=== PATIENT | female | born 1945 | race Caucasian/White ===

== ENCOUNTER 2023-04-07 10:31 | Emergency (ER) | payer MEDICARE, OTHER, SELFPAY ==
[2023-04-07 10:40] VITALS: BP 118/82; PULSE 87; RESP 16; TEMP 36.6; O2SAT 96; BMI 23.1
--- NOTE | 2023-04-07 11:46 | ED_ITS ---
HPI - Nausea/Vomiting/Diarrhea General: Chief complaint: Nausea/Vomiting/Diarrhea Stated complaint: NVD Time Seen by Provider: 04/07/23 11:46 History of Present Illness: Patient presents to the ER with complaints of nausea and vomiting. Patient ate out on and has had nausea vomiting ever since all except 1 day. Patient says she is not able to keep anything down and is soon as she puts it down comes right back up. Patient denies any abdominal pain and or diarrhea at this moment. There are no sick contacts in the house. who ate out on ate a different meal and does not have the nausea vomiting. Onset (ago): day(s) (4 days ago) Description of vomiting: watery and bilious Associated nausea: Yes Associated abdominal pain: No Exacerbating factors: eating Relieving factors: none Context: possible food poisoning Associated symtoms: Reports nausea Treatment prior to arrival: none Review of Systems General: Reports: 10 or more systems reviewed and unremarkable except in HPI and below GI: Reports: nausea Physical Exam Const: COMMON NORMALS: no acute distress, average body habitus, patient anitra ented x3, no limitations, healthy appearing, alert and well nourished HENMT: COMMON NORMALS: normocephalic, atraumatic, hearing grossly normal hang aterally, external ears normal, Normal external nose present and moist oral mucous membranes HEAD & SCALP: normocephalic and atraumatic NOSE: Normal external nose present EXTERNAL EAR: Yes external ears normal Neck/C-Spine: COMMON NORMALS: no JVD Chest: COMMONS NORMALS: normal inspection of the chest and normal palpation of entire chest wall Resp: COMMON NORMALS: normal respiratory effort, No retractions, No use of accessory muscles and clear to auscultation bilaterally AUSCULTATION: clear to auscultation bilaterally Cardio: COMMON NORMALS: no JVD, regular rate, regular rhythm, S1 normal heart sound present, S2 normal heart sound present, No gallops present (Cardio), No clicks present (Cardio), No murmurs present (Cardio) and No rub (Cardio) RATE: regular rate RHYTHM: regular rhythm HEART SOUNDS: S1 normal heart sound present and S2 normal heart sound present GI: COMMON NORMALS: Normal to inspection, nondistended, normoactive bowel sounds present, Soft to palpation, non-tender, No hepatosplenomegaly present and no masses PALPATION: Yes Soft to palpation and Yes No hepatosplenomegaly present : COMMON NORMALS: Yes no CVA tenderness BLADDER/KIDNEY EXAM: Yes no CVA tenderness Back/Pelvis: COMMON NORMALS: no CVA tenderness Neuro: COMMON NORMALS: patient oriented x3 SENSORIUM/ORIENTATION: Yes alert Course Vital Signs: Vital signs: Vital Signs Temperature 97.8 F 04/07/23 10:40 Pulse Rate 87 04/07/23 10:40 Respiratory Rate 16 04/07/23 10:40 Blood Pressure 118/82 04/07/23 10:40 Pulse Oximetry 96 04/07/23 10:40 Oxygen Delivery Me thod Room Air 04/07/23 10:40 MDM - Nausea/Vomiting/Diarrhea Medical Decision Making Patient presents to the ER with complaints of nausea vomiting for the last 4 days since eating out. Patient is not able to keep anything down. Patient has a benign physical exam. Lab work showed patient was hemoconcentrated and dehydrated. Patient's BUN/creatinine was elevated at 53 and 2.9. Patient stated she just had lab work done by her PCP in the last couple weeks and he did not see anything about renal insufficiency. Patient was given 2 L normal saline and 4 mg of Zofran in ER with improvement of patient's symptoms. Patient be discharged home on Zofran and told to push liquids. Patient should follow-up with PCP in 1 week to have labs rechecked. Differential Diagnosis Likely food poisoning and gastroenteritis; Unlikely traveler's diarrhea, clostridium difficile infection, drug-induced nausea and vomiting or dehydration Medical Records I reviewed the patient's medical records. Lab Data I reviewed the patient's lab results. 04/07/23 12:08 04/07/23 12:08 Laboratory Results WBC 11.5 10^3/uL (4.0-10.0) H 04/07/23 12:08 RBC 5.42 10^6/uL (4.1-5.3) H 04/07/23 12:08 Hgb 16.0 g/dL (11.5-15.3) H 04/07/23 12:08 Hct 47.3 % (37.0-47.0) H 04/07/23 12:08 MCV 87.3 fl (81-99) 04/07/23 12:08 MCH 29.5 pg (28.0-34.0) 04/07/23 12:08 MCHC 33.8 g/dL (30.0-36.0) 04/07/23 12:08 RDW 13.0 % (12.1-15.1) 04/07/23 12:08 Plt Count 259 10^3/cmm (130-400) 04/07/23 12:08 MPV 11.3 fL (7.4-10.4) H 04/07/23 12:08 Neut % (Auto) 74.5 % 04/07/23 12:08 Lymph % (Auto) 14.3 % 04/07/23 12:08 [place] % (Auto) 10.6 % 04/07/23 12:08 Eos % (Auto) 0.1 % 04/07/23 12:08 Baso % (Auto) 0.2 % 04/07/23 12:08 Neut # (Auto) 8.57 10^3/uL (1.8-7.7) H 04/07/23 12:08 Lymph # (Auto) 1.7 10^3/uL (0.8-4.8) 04/07/23 12:08 [place] # (Auto) 1.2 10^3/uL (0.2-0.9) H 04/07/23 12:08 Eos # (Auto) 0.0 10^3/uL (0.0-0.8) 04/07/23 12:08 Baso # (Auto) 0.0 10^3/uL (0.0-0.1) 04/07/23 12:08 Nucleated RBC % (auto) 0 % 04/07/23 12:08 Nucleated RBCs # 0.0 /100WBC 04/07/23 12:08 Sodium 136 mmol/L (136-145) 04/07/23 12:08 Potassium 3.5 mmol/L (3.5-5.1) 04/07/23 12:08 Chloride 90 mmol/L (98-107) L 04/07/23 12:08 Carbon Dioxide 25 mmol/L (22-29) 04/07/23 12:08 Anion Gap 24.5 (5-19) H 04/07/23 12:08 BUN 53 mg/dL (8-23) H 04/07/23 12:08 Creatinine 2.9 mg/dL (0.5-0.9) H 04/07/23 12:08 GFR Calculation Not Reportable 04/07/23 12:08 Glucose 110 mg/dL (65-115) 04/07/23 12:08 Calculated Osmolality 297 mOsm/kg (285-295) H 04/07/23 12:08 Calcium 10.5 mg/dL (8.5-10.5) 04/07/23 12:08 Magnesium 2.6 mg/dL (1.7-2.3) H 04/07/23 12:08 Total Bilirubin 0.7 mg/dL (0.15-1.2) 04/07/23 12:08 AST 19 U/L (0-32) 04/07/23 12:08 ALT 13 U/L (0-33) 04/07/23 12:08 Alkaline Phosphatase 100 U/L (35-105) 04/07/23 12:08 Total Protein 8.0 g/dL (6.6-8.7) 04/07/23 12:08 Albumin 4.7 g/dL (3.5-5.2) 04/07/23 12:08 Globulin 3.3 g/dL (1.3-4.6) 04/07/23 12:08 Lipase 54 U/L (13-60) 04/07/23 12:08 Urine Color Dark yellow (Yellow) 04/07/23 12:02 Urine Appearance Cloudy (CLEAR) A 04/07/23 12:02 Urine pH 5 (5-7) 04/07/23 12:02 Ur Specific Avis 1.025 (1.005-1.030) 04/07/23 12:02 Urine Protein 2+ (Negative) H 04/07/23 12:02 Urine Glucose (UA) 1+ (Normal) H 04/07/23 12:02 Urine Ketones Negative (Negative) 04/07/23 12: Urine Blood 3+ (Negative) H 04/07/23 12:02 Urine Nitrate Positive (Negative) H 04/07/23 12:02 Urine Bilirubin 1+ (Negative) H 04/07/23 12:02 Urine Urobilinogen 1 mg/dL (Negative) H 04/07/23 12:02 Ur Leukocyte Esterase 2+ (Negative) H 04/07/23 12:02 Urine RBC 5-10 /hpf (0-2) H 04/07/23 12:02 Urine WBC 80-100 /hpf (0-5) H 04/07/23 12:02 Ur Squamous Epith Cells 5-10 /hpf (0-5) H 04/07/23 12:02 Amorphous Sediment Not Reportable 04/07/23 12:02 Urine Bacteria 2+ /hpf (NONE) H 04/07/23 12:02 Discharge Plan Discharge Patient Disposition: Home Clinical Impression: Food poisoning, Gastroenteritis, Acute renal insufficiency Condition: Stable Prescriptions: New ondansetron HCl 4 mg tablet 4 mg PO Q6H PRN (Reason: nausea and vomiting) Qty: 30 0RF No Action amlodipine 5 mg tablet 5 mg PO QAM ibuprofen 200 mg Tablet 400 mg PO Q6H PRN (Reason: Pain) Discharge Orders: Discharge ED (Routine); Ordered 04/07/23 Ordered By: Leo Schuster Referrals: Case Lombardi DO [Primary Care Provider] - 1 week Discharge Diet: Advance as tolerated and Full LIquid Patient Instructions: Acute Kidney Injury (DC), Acute Nausea and Vomiting (DC) Activity Restrictions/Additional Instructions: Your lab work in the ER showed you are dehydrated and your kidneys are having to work harder than normal. Please limit all uses of anti-inflammatory medicines such as the ibuprofen. Please push clear liquids and advance her diet as tolerated. Please take the Zofran as needed for nausea and vomiting. Please follow-up with your family practice doctor within the next 7 to 10 days for evaluation and recheck of your kidneys. Coding Level of Care Code ED Membership Sales Manager for Iggy Holbrook
[2023-04-07 12:15] LABS: Basophils % 0.2 %; Eosinophils % 0.1 %; Hematocrit 47.3 % (37.0-47.0); Lymphocytes # 1.7 10^3/uL (0.8-4.8); Lymphocytes % 14.3 %; Mean Corpuscular HGB Conc 33.8 g/dL (30.0-36.0); Mean Corpuscular Hemoglobin 29.5 pg (28.0-34.0); Mean Corpuscular Volume 87.3 fl (81-99); Mean Platelet Volume 11.3 fL (7.4-10.4); Monocytes # 1.2 10^3/uL (0.2-0.9); Monocytes % 10.6 %; Neutrophils # 8.57 10^3/uL (1.8-7.7); Neutrophils % 74.5 %; Nucleated Red Blood Cells % 0 %; Platelet Count 259 10^3/cmm (130-400); Red Blood Count 5.42 10^6/uL (4.1-5.3); White Blood Count 11.5 10^3/uL (4.0-10.0)
[2023-04-07 12:24] LABS: Urine Appearance Cloudy (CLEAR); Urine Color Dark Yellow (Yellow)
[2023-04-07 12:26] LABS: Add Urine Microscopic? YES; Bilirubin Urine 1+ (Negative); Blood Urine 3+ (Negative); Glucose Urine UA 1+ (Normal); Ketones Urine Negative (Negative); Leukocyte Esterase Urine 2+ (Negative); Nitrate Urine Positive (Negative); Protein Urine 2+ (Negative); Specific Gravity, Urine 1.025 (1.005-1.030); Urobilinogen Urine 1 mg/dL (Negative); pH Urine 5 (5-7)
[2023-04-07 12:27] LABS: Add Urine Culture? Yes; Bacteria Urine 2+ /hpf; WBC Urine 80-100 /hpf (0-5)
[2023-04-07] MEDS: ondansetron 2 mg/ML SDV 2 mL 4 MG IVP (12:32)
[2023-04-07] MEDS: sodium chloride 0.9% 1,000 ML 999 ML IV ×2 (12:33→13:00)
[2023-04-07 12:34] LABS: Alanine Aminotransferase 13 U/L (0-33); Albumin Level 4.7 g/dL (3.5-5.2); Alkaline Phosphatase 100 U/L (35-105); Anion Gap 24.5 (5-19); Aspartate Amino Transferase 19 U/L (0-32); Blood Urea Nitrogen 53 mg/dL (8-23); Calcium 10.5 mg/dL (8.5-10.5); Carbon Dioxide 25 mmol/L (22-29); Chloride 90 mmol/L (98-107); Globulin 3.3 g/dL (1.3-4.6); Glucose 110 mg/dL (65-115); Lipase 54 U/L (13-60); Magnesium 2.6 mg/dL (1.7-2.3); Osmolality Calculated 297 mOsm/kg (285-295); Potassium 3.5 mmol/L (3.5-5.1); Sodium 136 mmol/L (136-145); Total Bilirubin 0.7 mg/dL (0.15-1.2)
[2023-04-07] MEDS: cefTRIAXone 1,000 MG in sodium chloride 0.9% (plus) 50 ML 100 MG IV (13:00)
[2023-04-07 14:15] VITALS: BP 137/93; O2SAT 92
== END 2023-04-07 14:43 | disposition home or self-care (01) ==
PROVIDERS: Emergency Provider Emergency Medicine; PCP Internal Medicine
DX: K52.9 Noninfective gastroenteritis and colitis, unspecified (principal); A05.9 Bacterial foodborne intoxication, unspecified; N28.9 Disorder of kidney and ureter, unspecified
CPT/HCPCS: 80053; 81001; 83690; 83735; 85025; 87077; 87086; 87186; 96365; 96374; 96375; 99284; J0696; J2405; J7030

== ENCOUNTER 2023-04-07 22:24 | Emergency (ER) | payer MEDICARE, OTHER, SELFPAY ==
[2023-04-07 22:36] VITALS: BP 108/69; PULSE 82; RESP 14; TEMP 37.1; O2SAT 91; BMI 23.0
[2023-04-07 22:52] VITALS: BP 110/69; PULSE 76; RESP 18; O2SAT 92
[2023-04-07] MEDS: ondansetron 2 mg/ML SDV 2 mL 4 MG IVP (22:58)
[2023-04-07] MEDS: sodium chloride 0.9% 1,000 ML 999 ML IV (22:58)
[2023-04-07 23:00] VITALS: BP 110/69; PULSE 74; RESP 22; O2SAT 91
--- NOTE | 2023-04-07 23:01 | W.ED.NAVMDI ---
HPI - Nausea/Vomiting/Diarrhea General: Chief complaint: Nausea/Vomiting/Diarrhea Stated complaint: N/V Time Seen by Provider: 04/07/23 22:39 Source: patient Mode of arrival: ambulatory Limitations: no limitations History of Present Illness: 78-year-old female states she has had nausea vomiting since . Patient was seen here earlier today diagnosed with UTI with her vomiting she states she took Zofran at home has had an episode of an hour but did have vomiting before that and was concerned she denies any pain currently she denies any diarrhea. Associated nausea: Yes Associated symtoms: Reports nausea; Denies chest pain or headache(s) Review of Systems Const: Denies: fever(s), chills, body aches or change in appetite Eyes: Denies: eye discomfort ENMT: Denies: throat pain or dental pain Card: Denies: chest pain Resp: Denies: dyspnea GI: Reports: nausea and vomiting; Denies: abdominal pain or diarrhea Musc: Denies: neck pain or back pain Skin/Breast: Denies: rash Neuro: Denies: headache(s) Physical Exam Const: COMMON NORMALS: patient oriented x3 HENMT: COMMON NORMALS: normocephalic and atraumatic HEAD & SCALP: normocephalic and atraumatic Eye: COMMON NORMALS: Equal, round and reactive pupils present and EOMs intact bilaterally PUPIL: Yes Equal, round and reactive pupils present Neck/C-Spine: COMMON NORMALS: full ROM and supple Chest: COMMONS NORMALS: normal inspection of the chest and normal palpation of entire chest wall Resp: COMMON NORMALS: normal respiratory effort, No retractions, No use of accessory muscles and clear to auscultation bilaterally AUSCULTATION: clear to auscultation bilaterally Cardio: COMMON NORMALS: regular rate, regular rhythm and No murmurs present (Cardio) RATE: regular rate RHYTHM: regular rhythm GI: COMMON NORMALS: Normal to inspection, nondistended, normoactive bowel sounds present, Soft to palpation, non-tender and no masses PALPATION: Yes Soft to palpation Extremity: COMMON NORMALS: normal to inspection and full ROM Neuro: COMMON NORMALS: patient oriented x3, moves all extremities and no focal motor deficits Psych: COMMON NORMALS: mental status grossly normal, Normal thought process present and cooperative THOUGHT PROCESS: Normal thought process present Skin: COMMON NORMALS: no rashes or lesions noted and no wounds GENERAL SKIN EXAM: no rashes or lesions noted Course Vital Signs: Vital signs: Vital Signs Temperature 98.7 F 04/07/23 22:36 Pulse Rate 74 04/07/23 23:00 Respiratory Rate 22 H 04/07/23 23:00 Blood Pressure 110/69 04/07/23 23:00 Pulse Oximetry 91 04/07/23 23:00 Oxygen Delivery Me thod Room Air 04/07/23 22:36 MDM - Nausea/Vomiting/Diarrhea Medical Decision Making Patient presents with vomiting since improved her kidney function here is improved from earlier she did have an acute cystitis we will write her for Keflex she was given Rocephin here. She is stable for discharge she has no signs of acute surgical abdomen or obstruction she is to continue take Zofran if she worsens she is to return she understands agrees to plan. Lab Data 04/07/23 23:00 04/07/23 23:00 Laboratory Results WBC 8.7 10^3/uL (4.0-10.0) 04/07/23 23:00 RBC 4.71 10^6/uL (4.1-5.3) 04/07/23 23:00 Hgb 13.5 g/dL (11.5-15.3) 04/07/23 23:00 Hct 41.0 % (37.0-47.0) 04/07/23 23:00 MCV 87.0 fl (81-99) 04/07/23 23:00 MCH 28.7 pg (28.0-34.0) 04/07/23 23:00 MCHC 32.9 g/dL (30.0-36.0) 04/07/23 23:00 RDW 12.9 % (12.1-15.1) 04/07/23 23:00 Plt Count 222 10^3/cmm (130-400) 04/07/23 23:00 MPV 11.5 fL (7.4-10.4) H 04/07/23 23:00 Neut % (Auto) 84.2 % 04/07/23 23:00 Lymph % (Auto) 6.6 % 04/07/23 23:00 [place] % (Auto) 8.7 % 04/07/23 23:00 Eos % (Auto) 0.1 % 04/07/23 23:00 Baso % (Auto) 0.2 % 04/07/23 23:00 Neut # (Auto) 7.35 10^3/uL (1.8-7.7) 04/07/23 23:00 Lymph # (Auto) 0.6 10^3/uL (0.8-4.8) L 04/07/23 23:00 [place] # (Auto) 0.8 10^3/uL (0.2-0.9) 04/07/23 23:00 Eos # (Auto) 0.0 10^3/uL (0.0-0.8) 04/07/23 23:00 Baso # (Auto) 0.0 10^3/uL (0.0-0.1) 04/07/23 23:00 Nucleated RBC % (auto) 0 % 04/07/23 23:00 Nucleated RBCs # 0.0 /100WBC 04/07/23 23:00 Sodium 138 mmol/L (136-145) 04/07/23 23:00 Potassium 3.8 mmol/L (3.5-5.1) 04/07/23 23:00 Chloride 99 mmol/L (98-107) 04/07/23 23:00 Carbon Dioxide 23 mmol/L (22-29) 04/07/23 23:00 Anion Gap 19.8 (5-19) H 04/07/23 23:00 BUN 55 mg/dL (8-23) H 04/07/23 23:00 Creatinine 2.2 mg/dL (0.5-0.9) H 04/07/23 23:00 GFR Calculation Not Reportable 04/07/23 23: Glucose 103 mg/dL (65-115) 04/07/23 23:00 Calculated Osmolality 301 mOsm/kg (285-295) H 04/07/23 23:00 Calcium 9.0 mg/dL (8.5-10.5) 04/07/23 23:00 Total Bilirubin 0.6 mg/dL (0.15-1.2) 04/07/23 23:00 AST 25 U/L (0-32) 04/07/23 23:00 ALT 15 U/L (0-33) 04/07/23 23:00 Alkaline Phosphatase 85 U/L (35-105) 04/07/23 23:00 Total Protein 6.9 g/dL (6.6-8.7) 04/07/23 23:00 Albumin 4.2 g/dL (3.5-5.2) 04/07/23 23:00 Globulin 2.7 g/dL (1.3-4.6) 04/07/23 23:00 Lipase 48 U/L (13-60) 04/07/23 23:00 Discharge Plan Discharge Patient Disposition: Home Clinical Impression: Vomiting Condition: Stable Prescriptions: New ondansetron 4 mg tablet,disintegrating 4 mg PO Q6H PRN (Reason: nausea and vomiting) Qty: 14 0RF cephalexin 500 mg capsule 500 mg PO TID 7 Days Qty: 21 0RF No Action amlodipine 5 mg tablet 5 mg PO QAM ibuprofen 200 mg Tablet 400 mg PO Q6H PRN (Reason: Pain) ondansetron HCl 4 mg tablet 4 mg PO Q6H PRN (Reason: nausea and vomiting) Qty: 30 0RF Discharge Orders: Discharge ED (Routine); Ordered 04/07/23 Ordered By: Deya Byrd Referrals: Case Lombardi DO [Primary Care Provider] - 1-3 days Discharge Diet: Advance as tolerated Discharge Activity: Resume usual activity Patient Instructions: Acute Nausea and Vomiting (ED) Coding Level of Care Code ED Remedy Developer for Iggy Holbrook
[2023-04-07 23:10] LABS: Basophils % 0.2 %; Eosinophils % 0.1 %; Hemoglobin 13.5 g/dL (11.5-15.3); Lymphocytes # 0.6 10^3/uL (0.8-4.8); Lymphocytes % 6.6 %; Mean Corpuscular HGB Conc 32.9 g/dL (30.0-36.0); Mean Corpuscular Hemoglobin 28.7 pg (28.0-34.0); Mean Platelet Volume 11.5 fL (7.4-10.4); Monocytes # 0.8 10^3/uL (0.2-0.9); Monocytes % 8.7 %; Neutrophils # 7.35 10^3/uL (1.8-7.7); Neutrophils % 84.2 %; Nucleated Red Blood Cells % 0 %; Platelet Count 222 10^3/cmm (130-400); Red Blood Count 4.71 10^6/uL (4.1-5.3); Red Cell Distribution Width 12.9 % (12.1-15.1); White Blood Count 8.7 10^3/uL (4.0-10.0)
[2023-04-07 23:30] LABS: Alanine Aminotransferase 15 U/L (0-33); Albumin Level 4.2 g/dL (3.5-5.2); Alkaline Phosphatase 85 U/L (35-105); Blood Urea Nitrogen 55 mg/dL (8-23); Carbon Dioxide 23 mmol/L (22-29); Chloride 99 mmol/L (98-107); Globulin 2.7 g/dL (1.3-4.6); Glucose 103 mg/dL (65-115); Lipase 48 U/L (13-60); Osmolality Calculated 301 mOsm/kg (285-295); Sodium 138 mmol/L (136-145); Total Bilirubin 0.6 mg/dL (0.15-1.2); Total Protein 6.9 g/dL (6.6-8.7)
[2023-04-07 23:32] LABS: Anion Gap 19.8 (5-19); Aspartate Amino Transferase 25 U/L (0-32); Potassium 3.8 mmol/L (3.5-5.1)
[2023-04-07] MEDS: cefTRIAXone 1,000 MG in sodium chloride 0.9% (plus) 50 ML 100 MG IV (23:42)
[2023-04-08 00:04] VITALS: BP 123/70; PULSE 75; RESP 14; O2SAT 92
== END 2023-04-08 00:31 | disposition home or self-care (01) ==
PROVIDERS: Emergency Provider Emergency Medicine; PCP Internal Medicine
DX: R11.10 Vomiting, unspecified (principal)
CPT/HCPCS: 80053; 83690; 85025; 96365; 96375; 99284; J0696; J2405; J7030

== ENCOUNTER 2023-04-08 22:51 | Emergency (ER) | payer MEDICARE, OTHER, SELFPAY ==
--- NOTE | 2023-04-08 22:54 | CTR_ITS ---
PROCEDURE INFORMATION: Exam: CT Abdomen And Pelvis Without Contrast Exam date and time: 04/08/2023 11:24 PM Age: 78 years old Clinical indication: Nausea and vomiting TECHNIQUE: Imaging protocol: Computed tomography of the abdomen and pelvis without contrast. Radiation optimization: All CT scans at this facility use at least one of these dose optimization techniques: automated exposure control; mA and/or kV adjustment per patient size (includes targeted exams where dose is matched to clinical indication); or iterative reconstruction. REPORTING DATA: Count of CT and Cardiac NM exams in prior 12 months: This patient has received 0 known CTs and 0 known cardiac nuclear medicine studies in the 12 months prior to the current study. COMPARISON: No relevant prior studies available. RADIATION DOSE METRICS: Total DLP (mGy-cm): 393.26 FINDINGS: Lungs: Emphysematous changes. Liver: Normal. No mass. Gallbladder and bile ducts: Normal. No calcified stones. No ductal dilation. Pancreas: Normal. No ductal dilation. Spleen: Normal. No splenomegaly. Adrenal glands: Normal. No mass. Kidneys and ureters: Normal. No hydronephrosis. Stomach and bowel: Constipation. Appendix: No evidence of appendicitis. Intraperitoneal space: Unremarkable. No free air. No significant fluid collection. Vasculature: Unremarkable. No abdominal aortic aneurysm. Lymph nodes: Unremarkable. No enlarged lymph nodes. Urinary bladder: Unremarkable as visualized. Reproductive: Unremarkable as visualized. Bones/joints: Unremarkable. No acute fracture. Soft tissues: Multiple dilated small bowel loops with fluid levels measuring up to 3.3 cm consistent with an obstruction, potentially high-grade with a suspected transition point secondary to a left inguinal hernia containing bowel with focal narrowing at the hernia neck, please correlate for reduction. CT/CT abdomen pelvis wo con [id number] IMPRESSION: 1. Multiple dilated small bowel loops with fluid levels measuring up to 3.3 cm consistent with an obstruction, potentially high-grade with a suspected transition point secondary to a left inguinal hernia containing bowel with focal narrowing at the hernia neck, please correlate for reduction. 2. Constipation. 3. Emphysematous changes.
[2023-04-08 22:55] VITALS: BMI 20.5
[2023-04-08 22:57] VITALS: BP 125/67; PULSE 70; RESP 16; TEMP 37.1; O2SAT 92
--- NOTE | 2023-04-08 23:00 | ED_ITS ---
HPI - Nausea/Vomiting/Diarrhea General: Chief complaint: Nausea/Vomiting/Diarrhea Stated complaint: N/V Time Seen by Provider: 04/08/23 22:55 Source: patient Mode of arrival: ambulatory Limitations: no limitations History of Present Illness: 78-year-old female who has been having nausea vomiting over the last 3 days she was seen here twice yesterday she is also has a UTI she is prescribed Zofran states she has not really been taking it has been having worsening nausea and vomiting throughout the day states she has not been able to tolerate any p.o. she denies any worsening improving factors denies any fever she had some abdominal cramping denies any severe abdominal pain. Associated nausea: Yes Associated symtoms: Reports nausea; Denies chest pain or headache(s) Review of Systems Const: Denies: fever(s) or chills ENMT: Denies: throat pain or dental pain Card: Denies: chest pain Resp: Denies: dyspnea GI: Reports: nausea and vomiting; Denies: abdominal pain Musc: Denies: neck pain or back pain Skin/Breast: Denies: rash Neuro: Denies: headache(s) Physical Exam Const: COMMON NORMALS: no acute distress, patient oriented x3 and healthy appearing HENMT: COMMON NORMALS: normocephalic and atraumatic HEAD & SCALP: normocephalic and atraumatic Eye: COMMON NORMALS: conjunctivae normal CONJUNCTIVA: Yes conjunctivae normal Neck/C-Spine: COMMON NORMALS: full ROM and supple Chest: COMMONS NORMALS: normal inspection of the chest and normal palpation of entire chest wall Resp: COMMON NORMALS: normal respiratory effort, No retractions, No use of accessory muscles and clear to auscultation bilaterally AUSCULTATION: clear to auscultation bilaterally Cardio: COMMON NORMALS: regular rate, regular rhythm and No murmurs present (Cardio) RATE: regular rate RHYTHM: regular rhythm GI: COMMON NORMALS: Normal to inspection, nondistended, normoactive bowel sounds present, Soft to palpation and non-tender PALPATION: Yes Soft to palpation OTHER: hernia noted to llq Extremity: COMMON NORMALS: normal to inspection and full ROM Neuro: COMMON NORMALS: patient oriented x3, moves all extremities and no focal motor deficits Psych: COMMON NORMALS: mental status grossly normal, Normal thought process pr esent and cooperative THOUGHT PROCESS: Normal thought process present Skin: COMMON NORMALS: no rashes or lesions noted and no wounds GENERAL SKIN EXAM: no rashes or lesions noted Course Vital Signs: Vital signs: Vital Signs Temperature 98.8 F 04/08/23 22:57 Pulse Rate 75 04/09/23 02:45 Respiratory Rate 19 H 04/09/23 02:45 Blood Pressure 102/73 04/09/23 02:45 Pulse Oximetry 95 04/09/23 02:45 Oxygen Delivery Me thod Room Air 04/09/23 02:06 MDM - Nausea/Vomiting/Diarrhea Medical Decision Making Patient presents with inguinal hernia likely causing her vomiting I was able to reduce the hernia and she feels much improved blood work here is normal we will get her follow-up with surgery she is stable for discharge she is return if worsening she understands agrees to plan. Lab Data 04/08/23 23:47 04/08/23 23:07 Radiology Impressions Abdomen/Pelvis CT 04/08/23 22:54 IMPRESSION: 1. Multiple dilated small bowel loops with fluid levels measuring up to 3.3 cm consistent with an obstruction, potentially high-grade with a suspected transition point secondary to a left inguinal hernia containing bowel with focal narrowing at the hernia neck, please correlate for reduction. 2. Constipation. 3. Emphysematous changes. Laboratory Results WBC 5.5 10^3/uL (4.0-10.0) 04/08/23 23:47 Corrected WBC Cancelled 04/08/23 23:07 RBC 4.51 10^6/uL (4.1-5.3) 04/08/23 23:47 Hgb 12.8 g/dL (11.5-15.3) 04/08/23 23:47 Hct 39.7 % (37.0-47.0) 04/08/23 23:47 MCV 88.0 fl (81-99) 04/08/23 23:47 MCH 28.4 pg (28.0-34.0) 04/08/23 23:47 MCHC 32.2 g/dL (30.0-36.0) 04/08/23 23:47 RDW 12.9 % (12.1-15.1) 04/08/23 23:47 Plt Count 179 10^3/cmm (130-400) 04/08/23 23:47 MPV 10.8 fL (7.4-10.4) H 04/08/23 23:47 Gran % Cancelled 04/08/23 23:07 Neut % (Auto) 69.5 % 04/08/23 23:47 Lymph % (Auto) 16.8 % 04/08/23 23:47 [place] % (Auto) 13.0 % 04/08/23 23:47 Eos % (Auto) 0.2 % 04/08/23 23:47 Baso % (Auto) 0.0 % 04/08/23 23:47 Neut # (Auto) 3.83 10^3/uL (1.8-7.7) 04/08/23 23:47 Lymph # (Auto) 0.9 10^3/uL (0.8-4.8) 04/08/23 23:47 [place] # (Auto) 0.7 10^3/uL (0.2-0.9) 04/08/23 23:47 Eos # (Auto) 0.0 10^3/uL (0.0-0.8) 04/08/23 23:47 Baso # (Auto) 0.0 10^3/uL (0.0-0.1) 04/08/23 23:47 Absolute Gran (auto) Cancelled 04/08/23 23:07 Nucleated RBC % (auto) 0 % 04/08/23 23:47 Nucleated RBCs # 0.0 /100WBC 04/08/23 23:47 Sodium 139 mmol/L (136-145) 04/08/23 23:07 Potassium 3.6 mmol/L (3.5-5.1) 04/08/23 23:07 Chloride 100 mmol/L (98-107) 04/08/23 23:07 Carbon Dioxide 25 mmol/L (22-29) 04/08/23 23:07 Anion Gap 17.6 (5-19) 04/08/23 23:07 BUN 43 mg/dL (8-23) H 04/08/23 23:07 Creatinine 1.1 mg/dL (0.5-0.9) H 04/08/23 23:07 GFR Calculation Not Reportable 04/08/23 23:07 Glucose 100 mg/dL (65-115) 04/08/23 23:07 Calculated Osmolality 299 mOsm/kg (285-295) H 04/08/23 23:07 Calcium 8.6 mg/dL (8.5-10.5) 04/08/23 23:07 Total Bilirubin 0.5 mg/dL (0.15-1.2) 04/08/23 23:07 AST 21 U/L (0-32) 04/08/23 23:07 ALT 16 U/L (0-33) 04/08/23 23:07 Alkaline Phosphatase 77 U/L (35-105) 04/08/23 23:07 Total Protein 6.0 g/dL (6.6-8.7) L 04/08/23 23:07 Albumin 4.0 g/dL (3.5-5.2) 04/08/23 23:07 Globulin 2.0 g/dL (1.3-4.6) 04/08/23 23:07 Lipase 120 U/L (13-60) H 04/08/23 23:07 Discharge Plan Discharge Patient Disposition: Home Clinical Impression: Inguinal hernia Qualifiers: Obstruction and gangrene presence: without obstruction or gangrene Laterality: unilateral Recurrence: not specified as recurrent Qualified Code(s): K40.90 - Unilateral inguinal hernia, without obstruction or gangrene, not specified as recurrent Condition: Stable Prescriptions: No Action amlodipine 5 mg tablet 5 mg PO QAM ibuprofen 200 mg Tablet 400 mg PO Q6H PRN (Reason: Pain) ondansetron HCl 4 mg tablet 4 mg PO Q6H PRN (Reason: nausea and vomiting) Qty: 30 0RF ondansetron 4 mg tablet,disintegrating 4 mg PO Q6H PRN (Reason: nausea and vomiting) Qty: 14 0RF cephalexin 500 mg capsule 500 mg PO TID 7 Days Qty: 21 0RF Discharge Orders: Discharge ED (Routine); Ordered 04/09/23 Ordered By: Deya Byrd Referrals: Lane Baldwin DO [Physician] - 1-3 days Case Lombardi DO [Primary Care Provider] - Discharge Diet: Advance as tolerated Discharge Activity: Resume usual activity Patient Instructions: Inguinal Hernia (ED) Coding Level of Care Code ED Galvanometer Assembler for Crystal Sheron
[2023-04-08] MEDS: ondansetron 2 mg/ML SDV 2 mL 4 MG IVP (23:04)
[2023-04-08] MEDS: sodium chloride 0.9% 1,000 ML 999 ML IV (23:04)
[2023-04-08 23:30] LABS: Alanine Aminotransferase 16 U/L (0-33); Alkaline Phosphatase 77 U/L (35-105); Blood Urea Nitrogen 43 mg/dL (8-23); Calcium 8.6 mg/dL (8.5-10.5); Carbon Dioxide 25 mmol/L (22-29); Chloride 100 mmol/L (98-107); Glucose 100 mg/dL (65-115); Lipase 120 U/L (13-60); Osmolality Calculated 299 mOsm/kg (285-295); Sodium 139 mmol/L (136-145); Total Bilirubin 0.5 mg/dL (0.15-1.2)
[2023-04-08 23:33] LABS: Anion Gap 17.6 (5-19); Aspartate Amino Transferase 21 U/L (0-32); Potassium 3.6 mmol/L (3.5-5.1)
[2023-04-08] MEDS: LORazepam 2 mg/mL INJ 1 mL 1 MG IVP (23:49)
[2023-04-08] MEDS: HYDROmorphone 1 mg/mL INJ 1 mL 0.5 MG IVP (23:50)
[2023-04-09 00:01] LABS: Eosinophils % 0.2 %; Hematocrit 39.7 % (37.0-47.0); Hemoglobin 12.8 g/dL (11.5-15.3); Lymphocytes # 0.9 10^3/uL (0.8-4.8); Lymphocytes % 16.8 %; Mean Corpuscular HGB Conc 32.2 g/dL (30.0-36.0); Mean Corpuscular Hemoglobin 28.4 pg (28.0-34.0); Mean Platelet Volume 10.8 fL (7.4-10.4); Monocytes # 0.7 10^3/uL (0.2-0.9); Neutrophils # 3.83 10^3/uL (1.8-7.7); Neutrophils % 69.5 %; Nucleated Red Blood Cells % 0 %; Platelet Count 179 10^3/cmm (130-400); Red Blood Count 4.51 10^6/uL (4.1-5.3); Red Cell Distribution Width 12.9 % (12.1-15.1); White Blood Count 5.5 10^3/uL (4.0-10.0)
[2023-04-09 00:26] VITALS: BP 123/69; PULSE 81; RESP 16; O2SAT 96
[2023-04-09 01:00] VITALS: BP 109/65; PULSE 64; RESP 19; O2SAT 97
[2023-04-09 02:06] VITALS: BP 101/60; PULSE 72; RESP 18; O2SAT 94
[2023-04-09 02:45] VITALS: BP 102/73; PULSE 75; RESP 19; O2SAT 95
--- NOTE | 2023-04-09 08:43 | DCPLANNER ---
Addendum entered by Parris Courtney 04/24/23 07:01: Patient had a follow up appointment scheduled with general surgery - patient did attend appointment. Addendum entered by Parris Courtney 04/16/23 11:46: Patient has a follow up appointment scheduled for Tuesday, April 18, 2023 at 10:[address] Baldwin at general surgery. Original Note: general manager farm had message to schedule a follow up appointment for patient with general surgery. general manager farm sent patients information to the front office staff at general surgery. Patients information will be printed and reviewed. Clinic will call patient with appointment information.
== END 2023-04-09 02:55 | disposition home or self-care (01) ==
PROVIDERS: Emergency Provider Emergency Medicine; PCP Internal Medicine
DX: K40.90 Unilateral inguinal hernia, without obstruction or gangrene, not specified as recurrent (principal); Z79.899 Other long term (current) drug therapy
CPT/HCPCS: 36415; 74176; 80053; 83690; 85025; 96361; 96374; 96375; 99285; J1170; J2060; J2405; J7030

== ENCOUNTER → 2023-04-22 08:43 | Outpatient (BNVA) | payer MEDICARE, OTHER, SELFPAY | PROVIDERS: PCP Internal Medicine; Visit Provider Surgery | DX: K40.90 Unilateral inguinal hernia, without obstruction or gangrene, not specified as recurrent (principal) | CPT/HCPCS: 99203 ==

== ENCOUNTER 2023-05-29 06:16 | Day surgery (SDC) | payer MEDICARE, OTHER, SELFPAY ==
[2023-05-28 13:07] VITALS: BMI 22.3
[2023-05-29] VITALS (9 sets, daily range): BP systolic 89–149; BP diastolic 68–91; PULSE 71–84; RESP 16–18; TEMP 36.1–37.3; O2SAT 90–99
[2023-05-29] MEDS: sodium chloride 0.9% 1,000 ML 30 ML IV (06:54)
--- NOTE | 2023-05-29 06:56 | ECG_ITS ---
[facility] Test Date: 2023-05-29 Pat Name: Suly Bragg Department: Room: Gender: Female [employer]ables Worker: : 1945 Requested By: Tracee Ochoa Order Number: [id number] Hernandez MD: Arun Gracia M.D. Measurements Intervals [place] Rate: 69 P: 38 [place]: 131 QRS: 2 QRSD: 81 T: 39 QT: 408 QTc: 438 Interpretive Statements SINUS RHYTHM WITH FREQUENT SUPRAVENTRICULAR PREMATURE COMPLEXES No previous ECG available for comparison Electronically Signed On 05-29-2023 10:14:02 CDT by Arun Gracia M.D. [id number]
--- NOTE | 2023-05-29 08:05 | PM.HP ---
Providers/Chief Complaint Primary Care Provider: Case Lombardi DO History of Present Illness Suly Bragg is a 78 year old female Medications/Allergies Home Medications Medication Instructions Recorded Confirmed Last Taken Type amlodipine 5 mg tablet 5 mg PO QAM 04/07/23 05/29/23 05/28/23 History loratadine 10 mg capsule 10 mg PO DAILY 05/28/23 05/29/23 05/28/23 History Allergies Allergy/AdvReac Type Severity Reaction Status Date / Time No Known Allergies Allergy Verified 05/28/23 12:56 Vitals/I&O/Wt Last Vital Signs Temp 99.1 F 05/29/23 06:48 Pulse 73 05/29/23 06:48 Resp 18 05/29/23 06:48 BP 149/89 05/29/23 06:48 Pulse Ox 97 05/29/23 06:48 O2 Del Method Room Air 05/29/23 06:48 Weight last 48 hrs Weight 130 lb A&P Assessment and plan (1) Reducible left inguinal hernia: Plan Laparoscopic left inguinal hernia repair with mesh Attestations Medical Necessity Statement*: Home Coding Level of Care Code Acute Code for Chg Fwd Diagnoses Reducible left inguinal hernia K40.90
--- NOTE | 2023-05-29 08:13 | ANES.PREANE2 ---
Pre-Anesthetic Assessment Height/Weight: Height 1.63 m Weight 58.967 kg Temp Pulse Resp BP Pulse Ox O2 Del Method 99.1 F 73 18 149/89 97 Room Air 05/29/23 06:48 05/29/23 06:48 05/29/23 06:48 05/29/23 06:48 05/29/23 06:48 05/29/23 06:48 Preop Diagnosis: LEFT INGUINAL HERNIA Operation Date: 05/29/23 08:00 Proposed Procedures p [id number] - lap left inguinal hernia repair with mesh K40.90(Left) - Lane Baldwin DO Familial anesthetic complications: None Was Beta Sharifa taken within 24 hours: N/A Was Clonidine taken within 24 hours: N/A Last intake: Intake Last Liquid Date 05/28/23 Last Liquid Time 21:00 Last Solid Date 05/28/23 Last Solid Time 16:30 Social No alcohol and No tobacco Exam alert, oriented x 3, clear to auscultation bilaterally and regular rate & rhythm Airway Mallampati: Class I Dentition: full CV/HEM Hypertension Anesthetic Plan ASA status: 2 Anesthesia: General Risk of > 500 ml blood loss (7ml/kg in children): No Medications/Allergies Home Medications Medication Instructions Recorded Confirmed Last Taken Type amlodipine 5 mg tablet 5 mg PO QAM 04/07/23 05/29/23 05/28/23 History loratadine 10 mg capsule 10 mg PO DAILY 05/28/23 05/29/23 05/28/23 History Allergies Allergy/AdvReac Type Severity Reaction Status Date / Time No Known Allergies Allergy Verified 05/28/23 12:56 Current Medications Generic Name Dose Route Start Last Admin Trade Name Abhinav PRN Reason Stop Dose Admin Sodium Chloride 1,000 mls @ 30 mls/hr 05/29/23 06:45 05/29/23 06:54 Sodium Chloride 0.9% IV 05/30/23 06:44 30 mls/hr .Q24H KAZ Administration Data Anesthesia Cardiac Studies: No Data to Display
[2023-05-29] MEDS: ceFAZolin 2,000 MG in sodium chloride 0.9% (plus) 50 ML 100 MG IV (08:15)
[2023-05-29] MEDS: lidocaine-epi 2% 20 mL INJ INJECTION (08:51)
--- NOTE | 2023-05-29 09:43 | PM.OP ---
Operative Report Date of procedure: May 29, 2023 Pre-op diagnosis: Preop Diagnosis LEFT INGUINAL HERNIA Post-op diagnosis: same Procedure done: Laparoscopic repair of left inguinal hernia with mesh Implants: Large left 3D max Bard mesh Specimens removed/disposition: None Surgeon: Dr. Lane Baldwin DO Anesthesia: General Estimated blood loss (mL): 5 Complications: None apparent Brief History: This is a very pleasant 78-year-old female who presented to my office with a large chronic left inguinal hernia. Laparoscopic repair with mesh was indicated. The risk and benefits were explained and documented. Procedure: Patient was wheeled into the operative room and placed on the OR table in a supine position. Abdomen was inspected prepped and draped in usual sterile fashion. Time-out was performed and all present were in agreement. A 15 blade scalpel was used to make 1.2 centimeter incision infraumbilically. Combination of sharp and blunt dissection was performed down to the anterior rectus sheath which was opened sharply. The dissecting balloon was then inserted into the space of Retzius and blown up. We put the camera into the port and identified that we were in the correct space. I then placed 2 5 millimeter trocars suprapubically in the midline. I then used endokitners to bluntly dissect in the space of Retzius out laterally. A large direct inguinal hernia was identified on the left. Blunt dissection was performed to dissect down the hernia sac. There was a large amount of omentum in the hernia sac. A large left inguinal mesh was then placed into the space of Retzius. The mesh was unrolled and tacked once medially at the pubic bone. The mesh laid out nicely over the spermatic cord. Photos were taken of the mesh laid out and the hernia sac laid underneath the mesh. I watched the hernia sac remained in place as insufflation was removed. I then put a 5 mm trocar in the left upper quadrant and a second 5 mm trocar in the left lower quadrant to examine the abdomen. I manually hold the omentum out of the space of Retzius and back into the abdomen. The umbilical incision was closed at the fascia with a Martir-Jerome in a [id number] fashion with an 0 Vicryl suture. Incisions were closed with 4-0 Monocryl in a subcuticular interrupted fashion. Skin glue was applied. Patient tolerated the procedure well.
[2023-05-29] MEDS: fentaNYL 50 mcg/mL INJ 2mL IVP (10:05)
[2023-05-29] MEDS: HYDROcodone-acetaminophen 10-325 mg Tablet 1 TAB PO (10:48)
== END 2023-05-29 12:25 | disposition home or self-care (01) ==
PROVIDERS: PCP Internal Medicine; Visit Provider Surgery
PROC: (CPT 49650; principal; 2023-05-29 08:00)
DX: K40.90 Unilateral inguinal hernia, without obstruction or gangrene, not specified as recurrent (principal); I10 Essential (primary) hypertension
CPT/HCPCS: 49650; 51702; 93005; C1781; J0690; J1100; J2371; J2405; J2704; J3010; J3490; J7030

== ENCOUNTER → 2023-06-11 13:48 | Outpatient (BNVA) | payer MEDICARE, OTHER, SELFPAY | PROVIDERS: PCP Internal Medicine; Visit Provider Surgery | DX: Z98.890 Other specified postprocedural states (principal); Z87.19 Personal history of other diseases of the digestive system | CPT/HCPCS: 99024 ==

== ENCOUNTER 2025-05-24 07:27 | Outpatient (CLI) | payer MEDICARE, OTHER, SELFPAY ==
--- NOTE | 2025-05-24 07:42 | CT_ITS ---
WS: [id number] LDCT LUNG CANCER SCREENING TECHNIQUE: Noncontrast CT of the chest with coronal and sagittal reformatted images. CLINICAL INFORMATION: HX PF TOBACCO USE COMPARISON: None. DLP: 47.61 mGy.cm DIvol: Mean CTDIvol: 0.90 (mGy) All CT scans at [facility] use at least one of these dose optimization techniques: automated exposure control; mA and/or kV adjustment per patient size (includes targeted exams where dose is matched to clinical indication); or iterative reconstruction. FINDINGS: Chronic emphysematous changes. Calcified granuloma RIGHT middle lobe. Small RIGHT perifissural nodule. Aortic calcification. Coronary calcification. No mediastinal or hilar lymphadenopathy. No axillary lymphadenopathy. Adrenal glands are normal. Small esophageal hiatal hernia. Bilateral fat- containing Bochdalek hernias. CT/CT lung screening [id number] IMPRESSION: LUNG-RADS: 2-Benign Appearance or Behavior FOLLOW UP: 12 Month: Continue annual screening with LDCT
== END 2025-05-24 07:28 | disposition home or self-care (01) ==
LOC: RAD 07:28
PROVIDERS: PCP Nurse Practitioner Family; Visit Provider Nurse Practitioner Family
DX: K65.4 Sclerosing mesenteritis (principal); Z12.2 Encounter for screening for malignant neoplasm of respiratory organs; Z87.891 Personal history of nicotine dependence; R91.1 Solitary pulmonary nodule; J43.9 Emphysema, unspecified; I70.0 Atherosclerosis of aorta; I25.10 Atherosclerotic heart disease of native coronary artery without angina pectoris; K44.9 Diaphragmatic hernia without obstruction or gangrene; K46.9 Unspecified abdominal hernia without obstruction or gangrene
CPT/HCPCS: 71271

== ENCOUNTER → 2025-06-10 13:17 | Outpatient (BNVA) | payer MEDICARE, OTHER, SELFPAY | PROVIDERS: PCP Nurse Practitioner Family; Visit Provider Internal Medicine | DX: J43.9 Emphysema, unspecified (principal); J30.9 Allergic rhinitis, unspecified; J98.4 Other disorders of lung; R91.1 Solitary pulmonary nodule; Z87.891 Personal history of nicotine dependence; J44.9 Chronic obstructive pulmonary disease, unspecified; T78.40XA Allergy, unspecified, initial encounter; Y99.9 Unspecified external cause status | CPT/HCPCS: 36415; 85025; 86003; 99214 ==

== ENCOUNTER 2025-07-06 09:58 | Outpatient (CLI) | payer MEDICARE, OTHER, SELFPAY ==
[2025-07-06 10:18] VITALS: PULSE 79; RESP 18; O2SAT 98
== END 2025-07-06 09:59 | disposition home or self-care (01) ==
LOC: RT 10:00
PROVIDERS: PCP Nurse Practitioner Family; Visit Provider Internal Medicine
DX: J44.9 Chronic obstructive pulmonary disease, unspecified (principal); J98.8 Other specified respiratory disorders; R94.2 Abnormal results of pulmonary function studies
CPT/HCPCS: 94060; 94726; 94729; J7613

== ENCOUNTER → 2025-08-04 10:23 | Outpatient (BNVA) | payer MEDICARE, OTHER, SELFPAY | PROVIDERS: PCP Nurse Practitioner Family; Visit Provider Internal Medicine | DX: J30.9 Allergic rhinitis, unspecified (principal); J44.9 Chronic obstructive pulmonary disease, unspecified; Z91.141 Patient's other noncompliance with medication regimen due to financial hardship; Z87.891 Personal history of nicotine dependence | CPT/HCPCS: 99214; Q3014 ==